=== PATIENT | male | born 1935 | race Caucasian/White ===

== ENCOUNTER 2018-02-17 11:38 | Emergency (ER) | payer MEDICARE, OTHER, SELFPAY ==
[2018-02-17 11:39] VITALS: BP 194/85; PULSE 108; RESP 15; TEMP 36.8; O2SAT 98; BMI 26.4
--- NOTE | 2018-02-17 11:54 | EKG12_ITS ---
Test Reason : CP Blood Pressure : / mmHG Vent. Rate : 107 BPM Atrial Rate : 107 BPM P-R Int : 158 ms QRS Dur : 086 ms QT Int : 312 ms P-R-T Axes : 063 -23 062 degrees QTc Int : 416 ms Sinus tachycardia Otherwise normal ECG Confirmed by RODRÍGUEZ HENDRICKS, LESLY ([id number]), editor in chief newspaper [employer] ENGLISH ([id number]) on 02/19/2018 1:24:11 PM Referred By: AJ Confirmed By:LESLY ARREGUIN MD
--- NOTE | 2018-02-17 11:54 | RAD_ITS ---
STUDY: X-RAY CHEST REASON FOR EXAM: Male, 82 years old. Chest pain. TECHNIQUE: Single frontal view of the chest. COMPARISON: None. FINDINGS: The lungs are mildly hyperexpanded. There are granulomatous calcifications. There is no demonstrated pleural abnormality. There is borderline cardiomegaly. There are calcified hilar nodes. Normal visualized pulmonary arteries. Normal visualized aortic arch and descending thoracic aorta. Normal visualized thoracic spine. Normal visualized ribs, clavicles, and shoulders. There is no demonstrated abnormality of the visualized soft tissue structures of the upper abdomen. RAD/Chest 1 View (Portable) IMPRESSION: Borderline cardiomegaly with hyperexpansion. No acute pathology identified. Electronically Signed: Dmitry Quesada MD at 12:13 EDT , Service support ,
[2018-02-17 11:56] VITALS: O2SAT 98
[2018-02-17 12:02] LABS: Absolute Lymphocyte Count 2.59 X10^3/ul (0.83-4.51); Absolute Neutrophil Count 6.6 X10^3/uL (2.0-7.7); Basophil# 0.04 X10^3/uL; Basophil% 0.4 % (0-1); Eosinophil# 0.13 X10^3/uL; Eosinophils% 1.2 % (0-5); Hematocrit 35.7 % (40-54); Hemoglobin 12.3 g/dl (13.0-16.5); Lymphocyte # 2.59 X10^3/ul (4.0); Lymphocyte % 24.2 % (19-41); Mean Corp Hgb Conc 34.5 g/gl (32-36); Mean Corpuscular Hgb 34.6 pg (27.0-32.0); Mean Corpuscular Volume 100.3 fL (80-94); Mean Platelet Vol. 10.3 fl (6.2-12.0); Monocyte# 1.31 X10^3/uL; Monocyte% 12.2 % (0-10); Neutrophil # 6.61 X10^3/uL (2.7-7.7); Neutrophil % 61.8 % (47-70); POSITIVE COUNT NO; POSITIVE DIFFERENTIAL NO; POSITIVE MORPHOLOGY NO; Platelet Count 252 K/mm3 (150-450); RBC Distribution Width CV 12.6 % (11.6-14.6); RBC Distribution Width SD 44.9 fl (35.1-43.9); Red Blood Count 3.56 M/mm3 (4.6-6.2); White Blood Count 10.7 K/mm3 (4.4-11.0)
[2018-02-17] MEDS: 0.9% Normal Saline 1,000 ML 150 ML IV (12:02)
[2018-02-17] MEDS: Aspirin 81 MG TAB.CHEW 243 MG PO (12:02)
[2018-02-17 12:17] LABS: Anion Gap 9 (5-15); BUN 38 mg/dL (7-18); BUN/Creat Ratio 24.5 RATIO (10-20); Chloride 109 mmol/L (98-107); Creatinine, Serum 1.55 mg/dL (0.70-1.30); EST Glomerular Filtration Rate 46 mL/min (>60); Est Glom Filt Rate - Afr Amer 56 mL/min (>60); Estimated Creatinine Clearance 39.25 ml/min; Glucose 94 mg/dL (74-106); Potassium 4.7 mmol/L (3.5-5.1); Sodium Level 142 mmol/L (136-145)
--- NOTE | 2018-02-17 12:48 | ED.DCSUM_ITS ---
- ER Visit Summary Date of Service: 02/17/18 Chief Complaint: Chest pain History of Present Illness: The patient is a 82 M with chest pain that started at 2 AM this morning. He describes as a pressure or tightness in the lower portion of his chest. He feels it secondary to gas. He states the pain is worse when he lies down was better when he sat up. He did sleep in a chair overnight. Patient states he got short of breath because he felt like he had to take small breaths due to the pressure in his chest. He did not break out in a sweat. Pain was not worsened with ambulation. Patient does have a history of hypertension. He reports his last stress test was approximately 5 years ago and was unremarkable. Physical Examination: Vital signs on arrival reveal blood pressure of 194/85 with a heart rate of 108. At the time of my examination his blood pressure is 157/113. Patient sitting upright in bed no acute distress. He is alert and talkative. Heart is regular rate and rhythm. Lung sounds are clear. Abdomen is soft and nontender. Lower extremity examination reveals no calf tenderness or edema. He has strong distal pulses. Test Results: Portable chest x-ray reveals borderline cardiomegaly and hyperexpansion. EKG is sinus tach at 107 with no sign of acute ischemia. CBC was normal white count with hemoglobin of 12.3. Chemistry studies reveal renal insufficiency with a BUN of 38 and creatinine 1.55. Troponin is less than 0.02. Emergency Department Course and Treatment: She had taken 1 baby aspirin prior to arrival. He was given 3 additional baby aspirin here. Repeat vital signs at this time include a blood pressure 154/65 with a heart rate of 104. Patient is given a GI cocktail. On repeat examination patient does have significant improvement in his symptoms. He is able to lie down without difficulty. He will be started on Prevacid at home. He is to return for any worsening symptoms. All test results were discussed with patient and son at bedside. Treatment Plan: [] Disposition: Discharge Impression: Atypical chest pain This note was generated with GreenCloud dictation software. It may contain incorrect words, spelling, and punctuation that were not noted in review of the chart prior to signing ED Disposition - Plan for ED Patient: Chief Complaint: Chest Pain Referrals: Benigno Christian MD [Primary Care Provider] -
[2018-02-17 13:10] VITALS: BP 159/68; PULSE 110; RESP 16; O2SAT 97
--- NOTE | 2018-02-17 13:42 | ED.DEP ---
ED Disposition - Plan for ED Patient: Disposition: Home or Assisted Living Chief Complaint: Chest Pain Instructions: ED Chest Pain Atypical Unkn Cause, ED GERD Prescriptions: Lansoprazole [Prevacid] 15 mg PO DAILY #30 capsule Referrals: Benigno Christian MD [Primary Care Provider] - 3-5 Days if not improving
[2018-02-17 13:50] VITALS: BP 155/70; PULSE 105; RESP 16; O2SAT 98
== END 2018-02-17 13:51 | disposition home or self-care (01) ==
PROVIDERS: Emergency Provider Emergency Medicine; Family Provider Family Medicine; PCP Family Medicine
DX: R07.89 Other chest pain (principal); I10 Essential (primary) hypertension; Z87.891 Personal history of nicotine dependence
CPT/HCPCS: 71045; 80048; 84484; 85025; 93005; 96360; 96361; 99285; J7030; A4216

== ENCOUNTER 2019-12-08 09:54 | Observation (INO) | payer MEDICARE, OTHER, SELFPAY ==
[2019-11-20 13:28] VITALS: BP 146/66; PULSE 83; RESP 16; TEMP 36.6; O2SAT 97; BMI 25.7
--- NOTE | 2019-11-20 13:39 | SDCEKG_ITS ---
Test Reason : Blood Pressure : / mmHG Vent. Rate : 078 BPM Atrial Rate : 078 BPM P-R Int : 154 ms QRS Dur : 082 ms QT Int : 334 ms P-R-T Axes : 053 -30 052 degrees QTc Int : 380 ms Sinus rhythm with occasional Premature ventricular complexes and Premature atrial complexes Left axis deviation Abnormal ECG Confirmed by NATHALIA HENDRICKS, MIL ([id number]), department editor [employer]ES ENGLISH ([id number]) on 11/26/2019 10:37:08 AM Referred By: FABY Confirmed By:MIL SLOAN MD
[2019-11-20 14:06] LABS: Absolute Lymphocyte Count 1.32 X10^3/uL (0.83-4.51); Absolute Neutrophil Count 6.6 X10^3/uL (2.0-7.7); Basophil# 0.09 X10^3/uL; Eosinophil# 0.08 X10^3/uL; Eosinophils% 0.9 % (0-5); Hematocrit 36.2 % (40-54); Lymphocyte # 1.32 X10^3/ul (4.0); Lymphocyte % 14.8 % (19-41); Mean Corp Hgb Conc 33.1 g/dL (32-36); Mean Corpuscular Hgb 33.3 pg (27.0-32.0); Mean Corpuscular Volume 100.6 fL (80-94); Mean Platelet Vol. 10.4 fl (6.2-12.0); NRBC Flagged by Analyzer 0 % (0-5); Neutrophil # 6.58 X10^3/uL (2.7-7.7); Neutrophil % 73.9 % (47-70); Platelet Count 278 K/mm3 (150-450); RBC Distribution Width CV 12.6 % (11.6-14.6); RBC Distribution Width SD 46.9 fl (35.1-43.9); White Blood Count 8.9 K/mm3 (4.4-11.0)
[2019-11-20 14:34] LABS: Anion Gap 7 (5-15); BUN 62 mg/dL (7-18); BUN/Creat Ratio 26.2 RATIO (10-20); Calcium,Total 8.4 mg/dL (8.5-10.1); Chloride 114 mmol/L (98-107); Creatinine, Serum 2.37 mg/dL (0.70-1.30); EST Glomerular Filtration Rate 28 mL/min (>60); Est Glom Filt Rate - Afr Amer 34 mL/min (>60); Estimated Creatinine Clearance 23.25 ml/min; Glucose 107 mg/dL (74-106); Potassium 5.6 mmol/L (3.5-5.1); Sodium Level 142 mmol/L (136-145)
[2019-12-08] VITALS (8 sets, daily range): BP systolic 103–143; BP diastolic 51–74; PULSE 77–92; RESP 14–18; TEMP 36.3–37.4; O2SAT 97–100; BMI 25.7
--- NOTE | 2019-12-08 | HIP_PTH ---
PATIENT: KRYSTAL JONES LOC: MS3 U#:[id number] AGE/SX: 84/M ROOM: AL306 RE12/08/[address]: Dr. Сергей Barnes DO : [id number] BED: 1 DIS: 12/09/2019 SPEC #: [id number] RECD: 12/08/19 16:07 STATUS: LYLA REQ #: [id number] CED: 12/08/19 00:[address]: Сергей Barnes DEPT: SURGICAL PATHOLOGY RECD BY: Jose Antonio Walsh ENTERED: 12/09/19 08:51 SP TYPE: TOTAL HIP OTHR DR: Dr. Benigno Christian MD Tissues: Hip, NOS Procedures: Decalcification bone/plaque Surgery Specimen Level IV HEADER OPERATION: ERAS, total hip replacement PRE-OP DIAGNOSIS: Unilateral primary osteoarthritis right hip TISSUE SUBMITTED: Right hip bone MICROSCOPIC DIAGNOSIS Bone of right hip, total hip replacement: Consistent with severe degenerative joint disease. AM:kam 12/12/19 MICROSCOPIC DESCRIPTION Slides are reviewed. GROSS DESCRIPTION Received is one container labeled with the patient's name and designated right hip bone. The specimen consists of a galvez femoral head with portion of femoral neck. The femoral head measures 5 x 5 x 4.5 cm and the portion of femoral neck measures 3 cm in length. The articular surface displays prominent osteophyte formation, eburnation and bone erosion. Also present in the specimen container are multiple irregular fragments of bone reamings and pink-yellow soft tissue measuring in aggregate 9 x 8 x 3 cm. Manufacturing Tech sections are submitted in two cassettes as follows: 1 - soft tissue, 2 - bone after decalcification. / SJ:kam 12/09/19 TC:5 CPT: 77999, 46840
[2019-12-08] MEDS: Lactated Ringers 1,000 ML 100 ML IV (10:31)
[2019-12-08] MEDS: Magnesium Sulfate 4gm/100mL 4 GM/100 ML IV.SOLN. IV (10:32)
[2019-12-08] MEDS: Gabapentin 600 MG Tablet PO (10:45)
[2019-12-08] MEDS: Acetaminophen 500 MG Tablet 1000 MG PO ×2 (10:45→21:15)
[2019-12-08 10:53] LABS: Potassium 4.1 mmol/L (3.5-5.1)
[2019-12-08 10:56] LABS: Bedside Glucose 107 mg/dL (70-110)
[2019-12-08] MEDS: 0.9% Normal Saline 1,000 ML 100 ML IV ×2 (11:20→22:31)
[2019-12-08] MEDS: Cefazolin 2 GM in 0.9% Normal Saline 100 ML IV (13:18)
--- NOTE | 2019-12-08 14:26 | RAD_ITS ---
STUDY: X-RAY - PELVIS AND RIGHT HIP REASON FOR EXAM: Male, 84 years old. POST OP RIGHT HIP TECHNIQUE: 2 views of the pelvis and hip. COMPARISON: None. FINDINGS: There is a non-specific bowel gas pattern. Normal visualized soft tissue structures. Upper quadrant of the pelvis is not included in the [id number]. Normal bilateral superior and inferior pubic rami. Normal pubic symphysis. Normal bilateral ischial tuberosities. Mild degenerative disease of the left hip seen. There is a right hip prosthesis in place with normal alignment. Skin staple along the right hip is noted consistent with recent surgery. Air along the operative site noted, postoperative. RAD/Hip Min 2 Views (Portable) IMPRESSION: Right hip prosthesis in place with normal alignment. Electronically Signed: Valeri Campos MD at 1:10 EST , Service support ,
--- NOTE | 2019-12-08 14:30 | PCM.OPRPT ---
Report of Operation Date of Procedure: 12/08/19 Pre-Operative Diagnosis: OA right hip Post-Operative Diagnosis: OA right hip Surgery/Procedure Performed:: Right THR Description of Surgical Findings:: Primary Surgeon/Physician: Сергей Barnes delivery man: Cameron Pittman PA-C delivery man: Pre-Operative Diagnosis: OA right hip Post-Operative Diagnosis: same Surgery/Procedure Performed: Right THR Estimated Blood Loss: 75 cc Specimen's Removed: bone Type of Anesthesia: spinal ASA Class: ASA3 Severe Disease Implants: [Dangelo Trident tritanium size 52 mm cup, size 4 Accolade 2 stem. - 2.75 MDM head/neck ] Surgical Indications: Patient has severe end-stage osteoarthritic changes in the [right ] hip. They have failed conservative measures including activity modification, anti-inflammatories, use of assistive devices. This to the point where the pain affects their ability to enjoy life and complete activities of daily living without discomfort. Patient has elected to undergo the above procedure Procedure Description: The patient was greeted in the preoperative area the [right ] hip was marked with surgical marker preoperative antibiotics administered. The patient was then taken to or suite in stable condition. Preoperative tranexamic acid was also utilized. Once the patient was placed in the supine position on the operating room table and once adequate anesthesia was obtained they were then placed in the lateral decubitus position with the surgical hip facing the field. All bony prominences were well-padded. A commercial hip position was utilized. The appropriate extremity was then prepped and draped in usual sterile fashion. Ioban was placed on the skin. Surgical timeout was performed and surgery was commenced. A standard posterior approach to the hip was then performed. Incision was planned and carried out with a #10 blade scalpel. Dissection was then carried length of the incision to the IT band which was split proximally and distally. A Charnley retractor was then placed for soft tissue retraction exposing the piriformis. A standard posterior capsulotomy was performed. Severe eburnation of bone was noted and periarticular osteophytes were identified consistent with severe end-stage osteoarthritis. A femoral neck osteotomy guide was used to sonam the proximal femur. A femoral osteotomy was then created approximately 1 fingerbreadth above the lesser trochanter. This was measured and placed on the back table. Once this was complete acetabular retractors were placed anteriorly and posteriorly. Labrum was then removed from the acetabulum exposing the entire cup of the acetabulum. Sequential reaming was then commenced and the acetabulum was medialized and sequentially widened in order to accommodate appropriate size cup. The acetabular cup was then impacted into position to the appropriate depth referencing approximately 30? anteversion and 45? of inclination. Excellent purchase was obtained. An appropriate size MDM liner was then placed. Attention was then turned to the femoral preparation. The hip was placed in the 90/90 position and a lateralizing box osteotome was utilized. Femoral starting awl was used followed by sequential broaching to the appropriate size. Excellent purchase was obtained with the stem no stem subsidence and excellent rotational stability was confirmed. A calcar reamer was then used in the trial head neck was placed on the broach. The hip was then located and taken through full range of motion flexion internal and external rotation as well as extension. Excellent stability was noted no impingement was identified of the components and leg lengths appear to be appropriate. The hip was at this point dislocated and the trial femoral components were removed. The final femoral stem was then implanted and impacted to the appropriate depth. Again excellent purchase was obtained no stem subsidence or rotational instability was noted. The hip was once again trialed and confirmation of leg length and stability was performed. Soft tissue tension also appeared to be appropriate. At this point the hip was redislocated and the trunnion was cleaned and dried meticulously in the appropriate size MDM femoral head was placed on the clean dry trunnion using a 12/14 Chavez taper. The hip was once again relocated and again taken through full range of motion. I did inject a cocktail of postoperative pain medication in the deep and superficial tissues. Copious irrigation was performed. Anatomic closure of the piriformis tendon was performed through drill holes in the greater trochanter. A #1 Vicryl 0 Vicryl was utilized in subcutaneous tissue and surgical chaparrita were placed in the skin. A well-padded nonadherent dressing was applied. Patient was taken to PACU in stable condition. No complications were identified. Will follow standard postop protocol for total hip arthroplasty. My lead dental assistant played a vital role in the procedure beginning with positioning, holding retraction of soft tissues, positioning the leg to optimize visualization during the procedure and assisting with wound closure. delivery man: Dmitry Pittman Type of Anesthesia:: Spinal Anesthesiologist: Weeman,William Specimen's removed: bone - Admit VTE Documentation VTE Present on Admission: No VTE Mechan Device Prophylaxis: SCD's, Knee High CARLOS Hose VTE Pharm Prophylaxis ordered?: Yes
[2019-12-08 19:05] LABS: Hematocrit 30.4 % (40-54); Hemoglobin 10.1 g/dL (13.0-16.5); Mean Corp Hgb Conc 33.2 g/dL (32-36); Mean Corpuscular Hgb 33.3 pg (27.0-32.0); Mean Corpuscular Volume 100.3 fL (80-94); Platelet Count 209 K/mm3 (150-450); RBC Distribution Width CV 11.9 % (11.6-14.6); RBC Distribution Width SD 43.5 fl (35.1-43.9); Red Blood Count 3.03 M/mm3 (4.6-6.2); White Blood Count 9.6 K/mm3 (4.4-11.0)
[2019-12-08 19:26] LABS: Anion Gap 6 (5-15); BUN 20 mg/dL (7-18); BUN/Creat Ratio 12.7 RATIO (10-20); Calcium,Total 8.2 mg/dL (8.5-10.1); Chloride 108 mmol/L (98-107); Creatinine, Serum 1.58 mg/dL (0.70-1.30); EST Glomerular Filtration Rate 45 mL/min (>60); Est Glom Filt Rate - Afr Amer 54 mL/min (>60); Estimated Creatinine Clearance 34.87 ml/min; Glucose 125 mg/dL (74-106); Potassium 3.9 mmol/L (3.5-5.1); Sodium Level 139 mmol/L (136-145)
[2019-12-08] MEDS: Cefazolin 1 GM/50 ML BAG IV (21:13)
[2019-12-08] MEDS: Aspirin 325 MG Tablet PO (21:15)
[2019-12-08] MEDS: Senna/Docusate Sodium 1 Tablet 2 TABLET PO (21:16)
[2019-12-08] MEDS: oxyCODONE 5 MG Tablet 2.5 MG PO (21:29)
[2019-12-09 02:19] VITALS: BP 121/62; PULSE 96; RESP 18; TEMP 37.4; O2SAT 96
[2019-12-09] MEDS: Acetaminophen 500 MG Tablet 1000 MG PO (05:42)
[2019-12-09 05:54] LABS: Anion Gap 5 (5-15); BUN 25 mg/dL (7-18); BUN/Creat Ratio 14.8 RATIO (10-20); Calcium,Total 7.5 mg/dL (8.5-10.1); Chloride 111 mmol/L (98-107); Creatinine, Serum 1.69 mg/dL (0.70-1.30); EST Glomerular Filtration Rate 42 mL/min (>60); Est Glom Filt Rate - Afr Amer 50 mL/min (>60); Glucose 108 mg/dL (74-106); Potassium 4.1 mmol/L (3.5-5.1); Sodium Level 140 mmol/L (136-145)
[2019-12-09] MEDS: Cefazolin 1 GM/50 ML BAG IV (06:11)
[2019-12-09] MEDS: 0.9% NaCl Peripheral Flush Adult/Peds IV (06:15)
[2019-12-09 07:59] VITALS: BP 126/57; PULSE 89; RESP 18; TEMP 37.1; O2SAT 97
[2019-12-09] MEDS: Senna/Docusate Sodium 1 Tablet 2 TABLET PO (08:07)
[2019-12-09] MEDS: Lisinopril 20 MG Tablet PO (08:08)
[2019-12-09] MEDS: amLODIPine 5 MG Tablet PO (08:08)
[2019-12-09] MEDS: hydroCHLOROthiazide 25 MG Tablet PO (08:08)
[2019-12-09] MEDS: Allopurinol 100 MG Tablet PO (08:08)
[2019-12-09] MEDS: Cyanocobalamin 500 MCG Tablet 1000 MCG PO (08:09)
[2019-12-09] MEDS: Aspirin 325 MG Tablet PO (08:09)
--- NOTE | 2019-12-09 08:12 | PCM.PN.ORT ---
Subjective: Patient sitting at bedside, states pain is well-managed. Patient denies chest pain, shortness of breath, calf pain, nausea vomiting. Patient has no other complaints. Ready for discharge home. Objective: Dressing is clean dry intact. Negative signs and symptoms of DVT. Patient is afebrile, neurovascular is otherwise intact. No respiratory distress. Patient has good plantar flexion dorsiflexion of the operative foot and ankle. - Physical Exam Vitals/I&O's: Vital Signs Temp Pulse Resp BP Pulse Ox 98.7 F 89 18 126/57 H 97 12/09/19 07:59 12/09/19 07:59 12/09/19 07:59 12/09/19 07:59 12/09/19 07:59 Oxygen Flow Rate (L/min) 6 Oxygen Delivery Method Room Air Weight: 78 kg Body Mass Index (BMI) 25.7 Intake and Output for Last 24 Hours 12/07/19 12/08/19 12/09/19 23:59 23:59 23:59 Intake Total 1451.67 / 1451.67 1170 / 1170 Output Total 400 / 400 Balance 1451.67 / 1451.67 770 / 770 General: Alert, Oriented x3, Cooperative HEENT: PERRLA Oral: Moist Mucosa Skin: No rashes Neurological: Cranial nerves II-XII grossly intact Psych/Mental Status: Normal Affect, Alert and oriented to time, place, person, mood and affect Laboratory Results 12/08/19 10:28: Potassium 4.1 12/08/19 10:48: POC Glucose 107 12/08/19 18:48: WBC 9.6, RBC 3.03 L, Hgb 10.1 L, Hct 30.4 L, MCV 100.3 H, MCH 33.3 H, MCHC 33.2, RDW Std Deviation 43.5, RDW Coeff of Peterson 11.9, Plt Count 209, MPV 10.0 12/08/19 18:48: Sodium 139, Potassium 3.9, Chloride 108 H, Carbon Dioxide 25.0, Anion Gap 6, BUN 20 H, Creatinine 1.58 H, Estim Creat Clear Calc 34.87, Est GFR (MDRD) Af Amer 54 L, Est GFR (MDRD) Non-Af 45 L, BUN/Creatinine Ratio 12.7, Glucose 125 H, Calcium 8.2 L 12/09/19 05:18: Sodium 140, Potassium 4.1, Chloride 111 H, Carbon Dioxide 24.0, Anion Gap 5, BUN 25 H, Creatinine 1.69 H, Estim Creat Clear Calc 32.60, Est GFR (MDRD) Af Amer 50 L, Est GFR (MDRD) Non-Af 42 L, BUN/Creatinine Ratio 14.8, Glucose 108 H, Calcium 7.5 L Current Medications Acetaminophen (Tylenol) 1,000 mg PO Q8 [facility] Last Admin: 12/09/19 05:42 Dose: 1,000 mg Documented by: Allopurinol (Zyloprim) 100 mg PO DAILY [facility] Amlodipine Besylate (Norvasc) 5 mg PO DAILY [facility] Aspirin (Aspirin) 325 mg PO BID [facility] Last Admin: 12/08/19 21:15 Dose: 325 mg Documented by: Cyanocobalamin (Vitamin B12) 1,000 mcg PO DAILY@0800 [facility] Hydrochlorothiazide (Hctz) 25 mg PO DAILY [facility] Sodium Chloride () 1,000 mls @ 100 mls/hr IV .Q10H [facility] Last Infusion: 12/09/19 06:33 Dose: 15 mls/hr Documented by: Sodium Chloride () 250 mls @ 15 mls/hr IV .[id number] PRN PRN Reason: Saline Flush Sodium Chloride () 250 mls @ 15 mls/hr IV .[id number] PRN PRN Reason: Additional IVPB Infusion Insulin Human Lispro (Humalog Kwikpen (Bkc)) 1 - 6 unit SC Q4H PRN PRN; Protocol PRN Reason: BG>/= 180, SEE PROTOCOL Lisinopril (Zestril) 20 mg PO DAILY [facility] Ondansetron HCl (Zofran) 4 mg IV Q8H PRN PRN PRN Reason: NAUSEA Oxycodone HCl (Oxyir) 2.5 mg PO Q4H PRN PRN PRN Reason: Pain Score 4-10/10 Last Admin: 12/08/19 21:29 Dose: 2.5 mg Documented by: Pantoprazole Sodium (Protonix) 40 mg PO DAILY PRN PRN PRN Reason: Indigestion Promethazine HCl (Phenergan) 12.5 mg IM Q6H PRN PRN; Protocol PRN Reason: NAUSEA/VOMITING Senna/Docusate Sodium (Senokot-S, Reena-Colace) 2 tablet PO BID [facility] Last Admin: 12/08/19 21:16 Dose: 2 tablet Documented by: Sodium Chloride () 5 - 15 ml IV UD PRN PRN Reason: SALINE FLUSH Last Admin: 12/09/19 06:15 Dose: 10 ml Documented by: Sodium Chloride () 10 - 40 ml IV UD PRN PRN Reason: SALINE FLUSH Medical Necessity - Tobacco Use Smoking Status: Former smoker Tobacco Use: Non-smoker Assessment/Plan Status post right total hip arthroplasty Plan 1. Continue all pain medications as prescribed 2. Physical therapy, weight-bear as tolerated with walker. 3. Aspirin 325 mg 1 p.o. every 12 hours x30 days for postop DVT prophylaxis 4. Encourage incentive spirometry 5. Discharge home today after p.m. therapy 6. Patient can shower on 12/12/2019 7. Follow-up as scheduled, see pink sheet.
--- NOTE | 2019-12-09 08:19 | DCINST_ITS ---
Discharge Diet: No Restrictions Discharge Activity: May Not Drive, May Shower, Use Walker May shower in (days): 3 - only if incision is dry and without drainage. Do NOT soak/submerge in tub/pool/cid/stream/hot tub. May resume sexual activity in: No Restrictions Ice area for (Minutes): 20 - every hour while awake Weight Bearing Status: Weight bearing as tolerated Lifting Restrictions: 20 pounds Elevate: Operative Extremity Call your doctor if your incision/area has: Continuous Slow Oozing, Sudden Increased Bleeding, Increased Pain/ Swelling, Increased Redness, Foul Smelling Discharge Call your doctor if you observe: Fever of 101 or Higher, Inability to urinate, Inability to have a bowel movement, Shortness of breath, Fainting spells, Chest pain, Increased palpitations (irregular heartbeat), Calf discomfort, Uncontrolled pain Change Dressing in (Days):: 0 - Change daily and as needed. Remove Dressing in (days):: 8 Cleanse incision/area with: Soap & Water Allergies/Adverse Reactions: Allergies No Known Allergies Allergy (Verified 12/08/19 10:16) Medications to take at Discharge Allopurinol 100 mg PO DAILY 11/20/19 Amlodipine [Norvasc] 5 mg PO DAILY 11/20/19 Cyanocobalamin [Vitamin B12] 1,000 mcg PO DAILY@0800 11/20/19 Lansoprazole [Prevacid] 30 mg PO DAILY PRN 11/20/19 Lisinopril/Hydrochlorothiazide [Lisinopril-Hctz 20-25 mg Tab] 1 ea PO DAILY 11/20/19 Sildenafil Citrate [Viagra] 100 mg PO PRN PRN 11/20/19 Acetaminophen [Tylenol] 1,000 mg PO Q8 #90 tab 12/09/19 Aspirin 325 mg PO BID #60 tab 12/09/19 Oxycodone [Oxyir] 2.5 mg PO Q6H PRN PRN 7 Days #56 tablet 12/09/19 Senna/Docusate Sodium [Senokot-S] 2 tablet PO BID tablet 12/09/19 The following prescriptions were given: Aspirin 325 mg PO BID #60 tab Transmission Status: Pending to [facility] Oxycodone [Oxyir] 2.5 mg PO Q6H PRN PRN 7 Days #56 tablet PRN Reason: Pain Score 4-10/10 Transmission Status: Sent to [facility] Acetaminophen [Tylenol] 1,000 mg PO Q8 #90 tab Transmission Status: Pending to [facility] Primary Care Physician: Benigno Christian MD [Primary Care Provider] - Test Results: Test results from this visit will be discussed in further detail at your follow- up appointment, if applicable. Please Follow Up With: Dmitry Pittman PA-C When: as scheduled, see pink sheet
--- NOTE | 2019-12-09 10:15 | CASEMGMT ---
RN CARTER Face to Face with patient for initial transition planning/care coordination assessment. RN CM introduced self and role at [facility]. Patient sitting in chair, alert and oriented. Patient willing to participate in assessment and is able to answer all questions appropriately. Care providers, pharmacy, and demographics verified. Patient wishes to discharge home and is setup for outpatient therapy at [facility] for Sunday. Patient states he has no further needs or concerns at this time. CM to follow for discharge planning needs that may arise. PCP: Anahi Specialists: Cameron Rosado Pharmacy: angie Klein at [facility] Retail Insurance: [employer], [employer] Auto Prescription Benefit: yes Living Will/HPOA: yes, Christa Rodriguez LNOK: , son Living Arrangements: Patient lives with in single story home with 2 steps to enter the home. Patient independent at home prior to surgery. Transportation: DME/HHC: Patient has grab bars, raised toilet seat, cane, walker, and hip kit. Patient is scheduled for outpatient therapy at [facility] for Sunday. Disposition Plan: Patient to discharge home with outpatient therapy, family support, and follow-up plans in place. Shanta TOMLINSON, RN, CM
[2019-12-09 14:39] VITALS: BP 135/67; PULSE 90; RESP 18; TEMP 36.8; O2SAT 98
== END 2019-12-09 14:35 | disposition home or self-care (01) ==
LOC: ACINP 09:58 → MS3 12-09 08:35 → ACINP 12-09 13:46 → MS3 12-09 13:46
PROVIDERS: Anesthesiology; Admitting Provider Orthopaedic Surgery; Family Provider Family Medicine; PCP Family Medicine; Referring Provider Orthopaedic Surgery; Visit Provider Orthopaedic Surgery
PROC: 0SR90JZ Replacement of Right Hip Joint with Synthetic Substitute, Open Approach (ICD-10-PCS; CPT 27130; principal; 2019-12-08 11:35)
DX: M16.11 Unilateral primary osteoarthritis, right hip (principal); I10 Essential (primary) hypertension; H54.7 Unspecified visual loss; M19.90 Unspecified osteoarthritis, unspecified site; M10.9 Gout, unspecified; Z79.899 Other long term (current) drug therapy; Z79.82 Long term (current) use of aspirin; Z87.891 Personal history of nicotine dependence; I49.1 Atrial premature depolarization; R94.31 Abnormal electrocardiogram [ECG] [EKG]
CPT/HCPCS: 01214; 27130; 36415; 73502; 80048; 82962; 84132; 85025; 85027; 87081; 88305; 88311; 93005; 96361; 96365; 96366; 97110; 97162; 97166; 97530; 97535; 99218; 99251; C1776; J7030; J7120; A4216; G0378; G0379; G0463

== ENCOUNTER 2021-03-18 19:33 | Emergency (ER) | payer MEDICARE, OTHER, SELFPAY ==
[2019-12-08 10:53] VITALS: BMI 25.7
[2021-03-18 19:34] VITALS: BP 181/82; PULSE 107; RESP 18; TEMP 36; O2SAT 97; BMI 25.1
--- NOTE | 2021-03-18 20:32 | EKG12_ITS ---
Test Reason : ABD PAIN Blood Pressure : / mmHG Vent. Rate : 102 BPM Atrial Rate : 102 BPM P-R Int : 176 ms QRS Dur : 086 ms QT Int : 352 ms P-R-T Axes : 059 -31 055 degrees QTc Int : 458 ms Sinus tachycardia Left axis deviation Abnormal ECG Confirmed by NATHALIA HENDRICKS, MIL ([id number]), editor in chief newspaper JAYLYN CARL ([id number]) on 03/22/2021 10:59:42 AM Referred By: ROD Confirmed By:MIL SLOAN MD
--- NOTE | 2021-03-18 20:32 | EDS_ITS ---
HPI History of Present Illness Chief Complaint: Abd Pain Informant: spouse/S.O. Narrative Narrative: 85-year-old male presents with upper abdominal discomfort. Symptoms began around noon today approximately 2 to 2-1/2 hours after he finished eating a omelette that contained peppers onions [place]. He states that he cannot find a position of comfort. He states he took some Tums and it did not go away. States it feels very similar to when he came to the emergency room in 2018 and was given a GI cocktail and it resolved. He took one of the antacid tablets that he was prescribed then with no relief. He denies any known heart issues. No nausea vomiting sweating. Does not radiate to the back. [facility] Medical History Former smoker GERD (gastroesophageal reflux disease) Hypertension Home Medications allopurinol 100 mg PO DAILY 11/20/19 [History Last Taken 12/07/19] amlodipine 5 mg PO DAILY 11/20/19 [History Last Taken 12/08/19] lansoprazole 30 mg PO DAILY PRN 11/20/19 [History Last Taken 12/08/19] lisinopril-hydrochlorothiazide 1 ea PO DAILY 11/20/19 [History Last Taken 12/07/19] sildenafil 100 mg PO PRN PRN 11/20/19 [History Last Taken Unknown] aspirin 325 mg PO BID #60 tab 12/09/19 [Rx Last Taken Unknown] acetaminophen 1,000 mg PO Q8 PRN 03/18/21 [History Last Taken Unknown] pantoprazole [Protonix] 40 mg PO DAILY #30 tab 03/18/21 [Rx Last Taken Unknown] sucralfate [Carafate] 1 g PO .qid 14 Days #56 tab 03/18/21 [Rx Last Taken Unknown] Allergy/AdvReac Type Severity Reaction Status Date / Time No Known Allergies Allergy Verified 03/18/21 19:37 Surgical History History of appendectomy Social History Smoking Status: Former smoker ROS ROS ED Constitutional Constitutional ED: Denies chills or weight loss Eyes Eyes: Denies change in vision or diplopia ENT ENT ED: Denies ear pain, rhinorrhea or sore throat Cardiovascular Cardiovascular: Denies chest pain, orthopnea, palpitations or racing heartbeat Respiratory/Chest Respiratory/Chest: Denies cough, dyspnea or orthopnea Gastrointestinal Gastrointestinal: Reports abdominal pain; Denies diarrhea, dyspepsia, nausea or vomiting Genitourinary Genitourinary ED: Denies dysuria, hematuria or urinary frequency Musculoskeletal Musculoskeletal: Denies arthralgias or myalgias Integumentary Denies abscess or rash Neurologic Neurologic: Denies headache(s) or weakness Psychiatric Psychiatric: Denies anxiety, depression, suicidal ideation or suicidal thoughts Endocrine Endocrinology: Denies polydipsia, polyphagia or polyuria Allergic/Immunologic Allergic/Immunologic ED: Denies mouth swelling, tongue swelling or urticaria EXAM Physical Exam Const Vital Signs: 03/18/21 19:34 Temperature 96.8 F L Temperature Source Temporal Pulse Rate 107 H Respiratory Rate 18 Blood Pressure 181/82 H Blood Pressure Mean 115 Pulse Ox 97 Oxygen Delivery Method Room Air Positive well nourished and well developed General Appearance ED: well developed HEENT Reports normocephalic, head/scalp atraumatic and moist mucous membranes Eyes PERRL and EOMs intact bilaterally Neck no lymphadenopathy, supple and no JVD Resp normal respiratory effort and clear to auscultation bilaterally Cardio regular rate, regular rhythm and no murmurs GI normal to inspection, nondistended, normoactive bowel sounds and non-tender Palpation: soft Back/Spine no CVA tenderness and normal ROM Extremity normal to inspection General Extremety ED: Negative for edema General Extremity: Negative for edema Neuro oriented x3 and CN's II-XII intact bilaterally Sensorium / Orientation: alert Motor Exam: strength 5/5 throughout Psych mental status grossly normal Mood & Affect: Negative for depressed or tearful Skin no rashes or lesions noted and no wounds MDM MDM MDM Narrative Medical decision making narrative: Patient would like a GI cocktail I gave it to him. He states that it did help but did not fully resolve it. We talked about doing blood work and at this point he would like to try some antacids at home. He does not believe it is anything serious. We talked specifically about what type of blood work we would order including cardiac abdominal labs. He states that he would prefer a prescription and will return if worsening. I think that this is a reasonable plan. EKG Initial EKG: Attestation: I personally reviewed and interpreted this EKG as follows: Comments: EKG demonstrates a sinus tachycardia at a rate of 102. No concerning features of ACS or ectopy noted. Discharge Plan Triage Chief Complaint: Abd Pain ED Provider: Colin Washington Dx/Rx/DC Orders Clinical Impression: Gastritis Instructions: ED Gastritis (Adult) Prescriptions: New pantoprazole [Protonix] 40 mg tablet,delayed release (DR/EC) 40 mg PO DAILY Qty: 30 RF: 0 sucralfate [Carafate] 1 gram tablet 1 g PO .qid 14 Days Qty: 56 RF: 0 No Action amlodipine 5 MG tablet 5 mg PO DAILY RF: 0 allopurinol 100 MG tablet 100 mg PO DAILY RF: 0 sildenafil 100 MG tablet 100 mg PO PRN PRN (Reason: ed) RF: 0 lisinopril-hydrochlorothiazide 1 EACH tablet 1 ea PO DAILY RF: 0 lansoprazole 30 MG capsule 30 mg PO DAILY PRN (Reason: Indigestion) RF: 0 aspirin 325 MG tablet 325 mg PO BID Qty: 60 RF: 0 acetaminophen 500 MG tablet 1,000 mg PO Q8 PRN (Reason: Pain) RF: 0 Primary Care Provider: Benigno Christian Referrals: Benigno Christian MD [Primary Care Provider] - 1 Week if not improving Disposition Disposition: Home, self care
[2021-03-18] MEDS: Mag Hydrox/Al Hydrox/Simeth 30 ML UDC PO (20:38)
[2021-03-18] MEDS: Sucralfate 1 GM Tablet PO (22:21)
[2021-03-18] MEDS: Pantoprazole Sodium 40 MG Tablet PO (22:21)
== END 2021-03-18 22:24 | disposition home or self-care (01) ==
PROVIDERS: Emergency Provider Emergency Medicine; PCP Family Medicine
DX: K29.70 Gastritis, unspecified, without bleeding (principal); I10 Essential (primary) hypertension; K21.9 Gastro-esophageal reflux disease without esophagitis; Z79.82 Long term (current) use of aspirin; Z79.899 Other long term (current) drug therapy; Z87.891 Personal history of nicotine dependence
CPT/HCPCS: 93005; 99283; A4216

== ENCOUNTER → 2022-03-14 | Outpatient (CLI) | payer MEDICARE, OTHER, SELFPAY ==
--- NOTE | 2022-03-14 13:35 | VDLE_ITS ---
Reason For Study: swelling Procedure LEFT This is a venous duplex using B-mode, color GSV is normal. flow and spectral Doppler. CFV is compressible, spontaneous, phasic, Exam performed in department. competent, and demonstrates normal The exam was abbreviated due to the COVID 19 augmentation. protocol. FV is compressible, spontaneous, phasic, The exam was diagnostic. competent and demonstrates normal A preliminary report was called and/or faxed augmentation. to Dr. Harman. POP V is compressible, spontaneous, phasic, competent and demonstrates normal augmentation. T/P Trunk is compressible. PTV is compressible. LT PerV is compressible. Hypoechoic area behind the knee measuring .76 x 1.64 cm. Area is nonvascular. VL/Venous Duplex US, Unilateral Interpretation Summary Deep veins of the left lower extremity are patent and compressible segmentally. There is no evidence of left lower extremity deep vein thrombosis. Valvular competence appears intac t within the proximal deep venous system on the left . The left great saphenous vein appears patent a nd compressible segmentally. A non-vascular, hypoechoic structure is noted in the left poplitea l space, measuring 0.76 cm x 1.64 cm. This probably represents a popliteal cyst. Clinical correlat ion is advised. Ordering Physician: Jason Harman Performed By: Usama Wiggins RVT
== END | disposition home or self-care (01) ==
PROVIDERS: PCP Family Medicine; Referring Provider Family Medicine; Visit Provider Family Medicine
DX: M79.89 Other specified soft tissue disorders (principal)
CPT/HCPCS: 93971

== ENCOUNTER 2023-02-01 23:20 | Emergency (ER) | payer MEDICARE, OTHER, SELFPAY ==
[2023-02-01 23:21] VITALS: BP 134/80; PULSE 86; RESP 18; TEMP 36.5; O2SAT 98; BMI 27.1
[2023-02-01 23:25] VITALS: TEMP 36.5
--- NOTE | 2023-02-01 23:39 | CT_ITS ---
INDICATION: trauma EXAMINATION: CT BRAIN - CT Head or Brain W/O Contrast Injection TECHNIQUE: Multiple axial images were obtained of the head without intravenous contrast. A radiation dose optimization technique was used for this scan. IV Contrast dosage and agent: None. COMPARISON: FINDINGS: BRAIN PARENCHYMA: No intra- or extra-axial hemorrhage. No evidence of acute infarct. No intracranial mass or mass effect. There is preservation of the barajas/white matter interface. Posterior fossa structures are unremarkable. CSF SPACES: Appropriate for age. No hydrocephalus. Basal cisterns are patent. CALVARIUM, SKULL BASE, PARANASAL SINUSES AND MASTOID AIR CELLS: There is near complete opacification of the right maxillary sinus suggesting chronic sinusitis. Nondisplaced fracture of the right nasal bone probably an old fracture. ORBITS: Both globes, extraocular muscles, optic nerves and retrobulbar fat appear unremarkable. There is left parietal subcutaneous hematoma. ASPECTS Score for Acute Strokes: 10 CT/Brain/Head without Contrast IMPRESSION: Nondisplaced fracture of the right nasal bone probably an old fracture. There is no acute intracranial abnormality. Electronically Signed: Sharmin Bloom MD at 0:37 EDT ,
--- NOTE | 2023-02-01 23:39 | EKG12_ITS ---
Test Reason : DYSRHYTHMIA Blood Pressure : / mmHG Vent. Rate : 076 BPM Atrial Rate : 076 BPM P-R Int : 164 ms QRS Dur : 086 ms QT Int : 368 ms P-R-T Axes : 027 -37 011 degrees QTc Int : 414 ms Sinus rhythm with Premature atrial complexes Left axis deviation Abnormal ECG Confirmed by SHARON HENDRICKS, KARIN ([id number]), film editor supervisor JAYLYN CARL ([id number]) on 02/05/2023 12:18:58 P M Referred By: KIAN Confirmed By:REJI HERRERA MD
--- NOTE | 2023-02-01 23:39 | CT_ITS ---
INDICATION: fall EXAMINATION: CT CERVICAL SPINE - CT Spine Cervical W/O Contrast Injection TECHNIQUE: Helically acquired images were obtained of the cervical spine. 2D reformatted images were reviewed. A radiation dose optimization technique was used for this scan. IV Contrast dosage and agent: None. COMPARISON: None. FINDINGS: Normal craniovertebral junction. Normal anterior atlantoaxial articulation. Normal odontoid process. There is straightening of the normal cervical lordosis. Normal vertebral bodies and posterior osseous elements. C2-3: Normal endplates. Normal disc height and morphology. Normal central canal and intervertebral neuroforamina. C3-4, C4-5, C5-6, C6-7: Endplate spondylosis. Central and paracentral disc bulge. Degenerative changes of the bilateral facet joints and uncovertebral joints. Stzt-sz-[id number] narrowing of the central canal and the bilateral intervertebral neural foramina. C7-T1: Normal endplates. Normal disc height and morphology. Normal central canal and intervertebral neuroforamina. Normal visualized soft tissue structures. CT/Spine Cervical without Contras IMPRESSION: Multilevel degenerative changes, as described above. Electronically Signed: Sharmin Bloom MD at 0:38 EDT ,
--- NOTE | 2023-02-01 23:40 | EDS_ITS ---
HPI History of Present Illness Chief Complaint: Head Injury Detail of Chief Complaint: Head injury Narrative Narrative: Patient presents to the emergency department via EMS from home. Patient apparently was drinking scotch. His went up to bed and when he did not come up she went down to check on him and he was found on the floor. Patient was not making much sense when trying to answer questions. EMS was called. On arrival he states he had 2 scotch his thinks it was maybe 3. Patient did hit his head and complains of a headache. He denies neck pain, chest pain, or abdominal pain. Patient has history of hypertension. He is not on blood thin ners. He denies recent illness. [facility] Medical History (Updated 02/02/23 @ 01:[address] Joann Asif, ) Chronic edema Former smoker GERD (gastroesophageal reflux disease) Hypertension Home Medications allopurinol 100 mg tablet 100 mg PO DAILY gout 11/20/19 [History Last Taken 12/07/19] amlodipine 5 mg tablet 5 mg PO DAILY bp 11/20/19 [History Last Taken 12/08/19] lansoprazole 30 mg capsule,delayed release 30 mg PO DAILY PRN Indigestion 11/20/19 [History Last Taken 12/08/19] lisinopril 20 mg-hydrochlorothiazide 25 mg tablet 1 ea PO DAILY bp 11/20/19 [History Last Taken 12/07/19] sildenafil 100 mg tablet 100 mg PO PRN PRN ed 11/20/19 [History Last Taken Unkn own] aspirin 325 mg tablet 325 mg PO BID #60 tabs 12/09/19 [Rx Last Taken Unknown] acetaminophen 500 mg tablet 1,000 mg PO Q8 PRN Pain 03/18/21 [History Last Taken Unknown] pantoprazole 40 mg tablet,delayed release (Protonix) 40 mg PO DAILY #30 tabs 03/18/21 [Rx Last Taken Unknown] sucralfate 1 gram tablet (Carafate) 1 g PO .qid 14 days #56 tabs 03/18/21 [Rx Last Taken Unknown] pantoprazole 40 mg tablet,delayed release 40 mg PO DAILY #30 tabs 03/19/21 [Rx Last Taken Unknown] sucralfate 1 gram tablet (Carafate) 1 g PO .qid #56 tabs 03/19/21 [Rx Last Taken Unknown] Allergy/AdvReac Type Severity Reaction Status Date / Time No Known Allergies Allergy Verified 02/01/23 23:24 Surgical History History of appendectomy Social History Smoking Status: Former smoker ROS ROS ED Review of Systems ROS Unobtainable: other Constitutional Constitutional ED: Reports lethargy; Denies chills, fever(s), sweats or weight loss Eyes Eyes: Denies blurry vision, change in vision or diplopia ENT ENT ED: Denies rhinorrhea or sore throat Cardiovascular Cardiovascular: Denies chest pain, orthopnea or racing heartbeat Respiratory/Chest Respiratory/Chest: Denies cough, dyspnea, dyspnea on exertion, orthopnea or sputum Gastrointestinal Gastrointestinal: Denies abdominal pain, diarrhea, nausea or vomiting Genitourinary Genitourinary ED: Denies dysuria, hematuria or urinary frequency Musculoskeletal Musculoskeletal: Denies arthralgias, back pain, myalgias or neck pain Integumentary Denies abscess, Abrasions or rash Neurologic Neurologic: Reports headache(s); Denies weakness Psychiatric Psychiatric: Denies anxiety, depression or suicidal thoughts Endocrine Endocrinology: Denies polydipsia, polyphagia or polyuria Hematologic/Lymphatic Hematologic/Lymphatic: Denies easy bleeding, easy bruising or lymphadenopathy Allergic/Immunologic Allergic/Immunologic ED: Denies mouth swelling, tongue swelling or urticaria EXAM Physical Exam Const Vital Signs: 02/01/23 23:21 02/01/23 23:25 02/02/23 00:35 Temperature 97.7 F L 97.7 F L Temperature Source Oral Pulse Rate 86 71 Respiratory Rate 18 14 Respiratory Effort Normal Non-Labored Respiratory Depth Normal Respiratory Pattern Normal Blood Pressure 134/80 H 127/71 H Blood Pressure Mean 98 89 Pulse Ox 98 97 Oxygen Delivery Method Room Air Room Air Room Air Positive well nourished and well developed General Appearance ED: well developed and NAD HEENT Reports TM's clear and moist mucous membranes HEENT Narrative: Patient does have soft tissue swelling to the left posterior occiput. No bony depressions noted. No hemotympanum. normocephalic and atraumatic; Negative for trauma or tenderness Tympanic Membrane ED: Yes TM's clear Eyes PERRL and EOMs intact bilaterally General Eye ED: Negative for pale conjunctiva or scleral icterus Neck no lymphadenopathy, supple and no JVD Neck Narrative: Minimal tenderness palpation over the C-spine. He has good range of motion. No bony step-offs or depressions. General: Negative for tenderness Chest Wall inspection of chest normal and palpation of chest normal Chest: Negative for tenderness Resp normal respiratory effort and clear to auscultation bilaterally Effort and Inspection: Negative for respiratory distress or pain with movement Auscultation: Negative for rhonchi, wheezes or diminished lung sounds Cardio regular rate, regular rhythm, S1 normal heart sound, S2 normal heart sound and no murmurs Peripheral Pulses: pulses 2+ throughout GI normal to inspection, nondistended, normoactive bowel sounds, soft to palpation, non-tender, non-distended and no masses Back/Spine no CVA tenderness and no thoracic nor lumbar tenderness Extremity normal to inspection General Extremety ED: Negative for edema General Extremity: Negative for edema Neuro oriented x3, CN's II-XII intact bilaterally, no sensory deficits noted and gait normal Sensorium / Orientation: awake, alert, oriented to person, oriented to place and oriented to time Motor Exam: strength 5/5 throughout and strength abnormal Psych mental status grossly normal Skin no rashes or lesions noted and no wounds MDM MDM MDM Narrative Medical decision making narrative: Patient presents to the ER with a head injury after admitting to drinking al cohol this evening. IV line established. EKG obtained on arrival showed a sinus rhythm with no acute ST segment changes. Patient had a CBC with differential that was normal. Chemistries unremarkable. Alcohol was elevated to 71. CT scan of the brain without contrast showed no acute abnormality other than the old fracture of the nasal bone. C-spine showed degenerative changes. I discussed the results with patient and his who is with him. She would like to try to take him home. I will ambulate him. After ambulating the patient he still somewhat unsteady on his feet and recommended that we observe him in the emergency department till alcohol level normalizes. Lab Data Attestation: I reviewed the patient's lab results. Labs: Laboratory Results - last 24 hr 02/01/23 02/01/23 02/01/23 23:05 23:05 23:05 WBC 6.7 RBC 2.97 L Hgb 10.5 L Hct 31.5 L MCV 106.1 H MCH 35.4 H MCHC 33.3 RDW Std Deviation 47.1 H RDW Coeff of [place] 12.1 Plt Count 231 MPV 10.3 Immature Gran % (Auto) 0.100 Neut % (Auto) 39.2 L Lymph % (Auto) 42.3 H [place] % (Auto) 11.3 H Eos % (Auto) 5.9 H Baso % (Auto) 1.2 H Absolute Neuts (auto) 2.6 Absolute Lymphs (auto) 2.85 Nucleated RBC % 0 Sodium 144 Potassium 4.2 Chloride 114 H Carbon Dioxide 21.0 Anion Gap 9 BUN 44 H Creatinine 1.67 H Estim Creat Clear Calc 32.34 Est GFR (MDRD) Af Amer 51 L Est GFR (MDRD) Non-Af 42 L BUN/Creatinine Ratio 26.3 H Glucose 91 Calcium 8.5 Ethyl Alcohol 271.0 Radiography Diagnostic Testing: Clinical Impression(s) from Imaging Studies Brain CT 02/01/23 23:39 IMPRESSION: Nondisplaced fracture of the right nasal bone probably an old fracture. There is no acute intracranial abnormality. Electronically Signed: Sharmin Bloom MD at 0:37 EDT , Cervical Spine CT 02/01/23 23:39 IMPRESSION: Multilevel degenerative changes, as described above. Electronically Signed: Sharmin Bloom MD at 0:38 EDT , EKG Initial EKG: Attestation: I personally reviewed and interpreted this EKG as follows: Comments: Sinus rhythm with a ventricular rate of 76 bpm with occasional PACs. Discharge Plan Triage Chief Complaint: Head Injury Other Complaint: Fall ED Provider: Joann Asif Dx/Rx/DC Orders Clinical Impression: Alcohol intoxication, Closed head injury, Fall Instructions: ED Alcohol Intoxication, ED Mechanical Fall, ED Head Injury (Adult) Prescriptions: No Action amlodipine 5 MG tablet 5 mg PO DAILY allopurinol 100 MG tablet 100 mg PO DAILY sildenafil 100 MG tablet 100 mg PO PRN PRN (Reason: ed) lisinopril-hydrochlorothiazide 1 EACH tablet 1 ea PO DAILY lansoprazole 30 MG capsule 30 mg PO DAILY PRN (Reason: Indigestion) aspirin 325 MG tablet 325 mg PO BID Qty: 60 0RF acetaminophen 500 MG tablet 1,000 mg PO Q8 PRN (Reason: Pain) pantoprazole [Protonix] 40 mg tablet,delayed release (DR/EC) 40 mg PO DAILY Qty: 30 0RF sucralfate [Carafate] 1 gram tablet 1 g PO .qid 14 Days Qty: 56 0RF sucralfate [Carafate] 1 gram tablet 1 g PO .qid Qty: 56 0RF pantoprazole 40 mg tablet,delayed release (DR/EC) 40 mg PO DAILY Qty: 30 0RF Primary Care Provider: Benigno Christian Referrals: Benigno Christian MD [Primary Care Provider] - 3-5 Days Disposition Disposition: Home, Self Care
[2023-02-01 23:48] LABS: Absolute Lymphocyte Count 2.85 X10^3/uL (0.83-4.51); Absolute Neutrophil Count 2.6 X10^3/uL (2.0-7.7); Basophil# 0.08 X10^3/uL; Basophil% 1.2 % (0-1); Eosinophils% 5.9 % (0-5); Hematocrit 31.5 % (40-54); Hemoglobin 10.5 g/dL (13.0-16.5); Lymphocyte # 2.85 X10^3/ul (0.83-4.51); Lymphocyte % 42.3 % (19-41); Mean Corp Hgb Conc 33.3 g/dL (32-36); Mean Corpuscular Hgb 35.4 pg (27.0-32.0); Mean Corpuscular Volume 106.1 fL (80-94); Mean Platelet Vol. 10.3 fl (6.2-12.0); Monocyte# 0.76 X10^3/uL; Monocyte% 11.3 % (0-10); NRBC Flagged by Analyzer 0 % (0-5); Neutrophil # 2.64 X10^3/uL (2.7-7.7); Neutrophil % 39.2 % (47-70); Platelet Count 231 K/mm3 (150-450); RBC Distribution Width CV 12.1 % (11.6-14.6); RBC Distribution Width SD 47.1 fl (35.1-43.9); Red Blood Count 2.97 M/mm3 (4.6-6.2); White Blood Count 6.7 K/mm3 (4.4-11.0)
[2023-02-01 23:58] LABS: Anion Gap 9 (5-15); BUN 44 mg/dL (7-18); BUN/Creat Ratio 26.3 RATIO (10-20); Calcium,Total 8.5 mg/dL (8.5-10.1); Chloride 114 mmol/L (98-107); Creatinine, Serum 1.67 mg/dL (0.70-1.30); EST Glomerular Filtration Rate 42 mL/min (>60); Est Glom Filt Rate - Afr Amer 51 mL/min (>60); Estimated Creatinine Clearance 32.34 ml/min; Glucose 91 mg/dL (74-106); Potassium 4.2 mmol/L (3.5-5.1); Sodium Level 144 mmol/L (136-145)
[2023-02-02] MEDS: 0.9% Normal Saline 1,000 ML 150 ML IV (00:05)
[2023-02-02 00:35] VITALS: BP 127/71; PULSE 71; RESP 14; O2SAT 97
[2023-02-02 04:33] VITALS: O2SAT 98
== END 2023-02-02 06:00 | disposition home or self-care (01) ==
PROVIDERS: Emergency Provider Emergency Medicine; PCP Family Medicine; Visit Provider Emergency Medicine
DX: S09.90XA Unspecified injury of head, initial encounter (principal); F10.129 Alcohol abuse with intoxication, unspecified; W19.XXXA Unspecified fall, initial encounter; Y92.009 Unspecified place in unspecified non-institutional (private) residence as the place of occurrence of the external cause; Y93.89 Activity, other specified; Y99.8 Other external cause status; I10 Essential (primary) hypertension; Y90.8 Blood alcohol level of 240 mg/100 ml or more; Z79.82 Long term (current) use of aspirin; Z79.899 Other long term (current) drug therapy; Z87.891 Personal history of nicotine dependence
CPT/HCPCS: 70450; 72125; 80048; 82077; 85025; 93005; 99285; J7030; A4216